=== PATIENT | male | born 1985 | race Asian ===

== ENCOUNTER 2017-08-25 19:45 | Emergency (ER) | payer SELFPAY ==
[~2017-08-25] VITALS: Ht 152.4 cm; Wt 68.9 kg
[2017-08-25 19:53] VITALS: Ht 152.4 cm; Wt 68.9 kg
[2017-08-25 22:52] VITALS: BP 130/69
== END 2017-08-25 22:52 | disposition home or self-care (01) ==
LOC: ED 19:45
DX: R09.89 Other specified symptoms and signs involving the circulatory and respiratory systems (principal); F10.129 Alcohol abuse with intoxication, unspecified
CPT/HCPCS: J1610; J2405